=== PATIENT | female | born 1990 | race Caucasian/White ===

== ENCOUNTER 2019-01-23 00:15 | Inpatient (IN) | payer OTHER ==
[~2019-01-23] VITALS: Ht 167.6 cm; Wt 68.0 kg
--- NOTE | 2019-01-23 12:11 | PR ---
[facility] [address] [facility] [place], [place] [address] Signed Progress Notes IP Datetime Report Generated by CPN: 01/23/2019 12:11 PROGRESS NOTES: [id number] Impression: Normal progression of labor; Reassuring heart rate Plan: Continue present management VITAL SIGNS: [id number] Vital Signs: Reviewed; Within Normal Limits EXAM: [id number] Dilatation: 2.5 Effacement: 70 Station: -2 MEMBRANES: [id number] Comments: PT seen and evaluated. Doing well. Comfortable w/ epidural. Ctxs becoming more regular and cervical change noted at last exam by RN. Will consider AROM vs Cook cath at next cervical exam. Reviewed progress and anticipated course of labor w/ pt and her father. All questions answered. Fetus A: [id number] FHR Baseline: 130 Variability: Moderate 6-25bpm Accelerations: None Decelerations: Variable FHR Category: Category II Comments on Fetus A: No evidence of metabolic acidosis Fetus B: [id number] Signing Physician: Damián Falk DO Copies: ~ *Electronically Signed* 01/23/19 1211 DAMIÁN FALK DO PATIENT NAME: GENO BORJA PROGRESS NOTE DATE OF : 90 PHYSICIAN: DAMIÁN FALK DO RPT #: [id number] REPORT IS CONFIDENTIAL AND NOT TO BE RELEASED WITHOUT AUTHORIZATION
--- NOTE | 2019-01-23 14:03 | PR ---
[facility] [address] [place], [place] [address] Signed Progress Notes IP Datetime Report Generated by RASHID: 01/23/2019 14:03 PROGRESS NOTES: [id number] Impression: Normal progression of labor; Reassuring heart rate Procedures: Artificial ROM; Intrauterine Pressure Catheter; Scalp Electrode Plan: Continue present management Informed Consent Obtain: Vaginal Delivery; Section Delivery VITAL SIGNS: [id number] Vital Signs: Reviewed; Within Normal Limits EXAM: [id number] Dilatation: 4.0 Effacement: 90 Station: -2 Uterine Contractions: q 1-4 minutes MEMBRANES: [id number] Membrane Status: Ruptured Amniotic Fluid Color: Clear Comments: Pt seen and examined. Doing well. Variable decelerations noted on FHT. Discussed options for AROM with internal monitors vs continued expectanat management. Pt desires AROM and internals. While assessing position, ROM noted. Moderate amount of clear fluid noted. IUPC and FSE placed without difficulty. Vertex well applied and no prolapse noted. Will monitor variabile closely and consider amnio-infusion Fetus A: [id number] FHR Baseline: 150 Variability: Moderate 6-25bpm Accelerations: None Decelerations: Variable FHR Category: Category II Presentation: Vertex Other Presentation: ROT Comments on Fetus A: No evidence of metabolic acid. Monitoring variable decelerations closely Fetus B: [id number] Signing Physician: Damián Falk DO Copies: *Electronically Signed* 01/23/19 1868 DAMIÁN FALK DO PATIENT NAME: GENO BORJA PROGRESS NOTE DATE OF : 90 PHYSICIAN: DAMIÁN FALK DO RPT #: [id number] REPORT IS CONFIDENTIAL AND NOT TO BE RELEASED WITHOUT AUTHORIZATION [address] [place], [place] [address] Signed ~ *Electronically Signed* 01/23/19 1403 DAMIÁN FALK DO PATIENT NAME: GENO BORJA PROGRESS NOTE DATE OF : 90 PHYSICIAN: DAMIÁN FAKL DO RPT #: [id number] REPORT IS CONFIDENTIAL AND NOT TO BE RELEASED WITHOUT AUTHORIZATION
--- NOTE | 2019-01-23 14:05 | PR ---
[facility] [address] [facility] [place], [place] [address] Signed Progress Notes IP Datetime Report Generated by CPCandelario: 01/23/2019 14:05 PROGRESS NOTES: [id number] Impression: Normal progression of labor; Reassuring heart rate Procedures: Artificial ROM; Intrauterine Pressure Catheter; Scalp Electrode Plan: Continue present management Informed Consent Obtain: Vaginal Delivery; Section Delivery VITAL SIGNS: [id number] Vital Signs: Reviewed; Within Normal Limits EXAM: [id number] Dilatation: 4.0 Effacement: 90 Station: -2 Uterine Contractions: q 1-4 minutes MEMBRANES: [id number] Membrane Status: Ruptured Amniotic Fluid Color: Clear Comments: Prolonged decel. Pt repositioned. Will start amnioinfusion. Consider delivery if not improved. Fetus A: [id number] FHR Baseline: 150 Variability: Moderate 6-25bpm Accelerations: None Decelerations: Variable FHR Category: Category II Presentation: Vertex Other Presentation: ROT Comments on Fetus A: No evidence of metabolic acid. Monitoring variable decelerations closely Fetus B: [id number] Signing Physician: Damián Falk DO Copies: ~ *Electronically Signed* 01/23/19 1401 DAMIÁN FALK DO PATIENT NAME: GENO BORJA PROGRESS NOTE DATE OF : 89 PHYSICIAN: DAMIÁN FALK DO RPT #: [id number] REPORT IS CONFIDENTIAL AND NOT TO BE RELEASED WITHOUT AUTHORIZATION
--- NOTE | 2019-01-23 14:19 | PR ---
[facility] [address] [place], [place] [address] Signed Progress Notes IP Datetime Report Generated by RASHID: 01/23/2019 14:19 PROGRESS NOTES: [id number] Impression: Normal progression of labor; Reassuring heart rate Procedures: Amnio Infusion Plan: Continue present management Informed Consent Obtain: Vaginal Delivery; Section Delivery VITAL SIGNS: [id number] Vital Signs: Reviewed; Within Normal Limits EXAM: [id number] Dilatation: 4.0 Effacement: 90 Station: -2 Uterine Contractions: q 1-4 minutes MEMBRANES: [id number] Membrane Status: Ruptured Amniotic Fluid Color: Clear Comments: FHT improved w/ amnioinfusion. Reviewed strip w/ pt. Discussed if she again develops prolonged deceleration urgent C/S may be indicated. Reviewed moderate variaiblity and accels reassuring. Will continue to monitor closely. Fetus A: [id number] FHR Baseline: 145 Variability: Moderate 6-25bpm Accelerations: 15X15 Decelerations: None FHR Category: Category I Presentation: Vertex Other Presentation: ROT Comments on Fetus A: Variables improved w/ amnioinfusion. Accel and moderate variability Fetus B: [id number] Signing Physician: Damián Falk DO Copies: ~ *Electronically Signed* 01/23/19 1419 DAMIÁN FALK DO PATIENT NAME: GENO BORJA PROGRESS NOTE DATE OF : 90 PHYSICIAN: DAMIÁN FALK DO [facility] #: [id number] REPORT IS CONFIDENTIAL AND NOT TO BE RELEASED WITHOUT AUTHORIZATION
--- NOTE | 2019-01-23 16:11 | PR ---
[facility] [address] [facility] [place], [place] [address] Signed Progress Notes IP Datetime Report Generated by RASHID: 01/23/2019 16:11 PROGRESS NOTES: [id number] Impression: Normal progression of labor; Reassuring heart rate Procedures: Amnio Infusion Plan: Continue present management Informed Consent Obtain: Vaginal Delivery; Section Delivery VITAL SIGNS: [id number] Vital Signs: Reviewed; Within Normal Limits EXAM: [id number] Dilatation: 5.0 Effacement: 90 Station: -2 Uterine Contractions: q 1-4 minutes MEMBRANES: [id number] Membrane Status: Ruptured Amniotic Fluid Color: Clear Comments: Strip reviewed. Improved variability, now moderate. Accels noted. Pt doing well. Continue current plan of care. Will consider pitocin augmentation if cervical change stalls Fetus A: [id number] FHR Baseline: 130 Variability: Moderate 6-25bpm Accelerations: 15X15 Decelerations: None FHR Category: Category I Presentation: Vertex Other Presentation: ROT Comments on Fetus A: No evidence of metabolic acidosis Fetus B: [id number] Signing Physician: Damián Falk DO Copies: ~ *Electronically Signed* 01/23/19 5448 DAMIÁN FALK DO PATIENT NAME: GENO BORJA PROGRESS NOTE DATE OF : 90 PHYSICIAN: DAMÁIN FALK DO RPT #: [id number] REPORT IS CONFIDENTIAL AND NOT TO BE RELEASED WITHOUT AUTHORIZATION
--- NOTE | 2019-01-23 18:36 | PR ---
[facility] [facility] [address] [facility] [place], [place] [address] Signed Progress Notes IP Datetime Report Generated by RASHID: 01/23/2019 18:36 PROGRESS NOTES: [id number] Impression: Normal progression of labor; Reassuring heart rate Procedures: Sterile Vag Exam Plan: Continue present management Informed Consent Obtain: Vaginal Delivery VITAL SIGNS: [id number] Vital Signs: Reviewed; Within Normal Limits EXAM: [id number] Dilatation: 7.0 Effacement: 95 Station: -1 Uterine Contractions: q5-7 min MEMBRANES: [id number] Membrane Status: Ruptured Amniotic Fluid Color: Clear Comments: Pt seen and examined. Doing well. FHT reassuring w/ amnioinfusion. CTXs 5-7 minutes. Will start low dose pit. Anticipate . Reviewed anticipated course of labor w/pt and family. All questions answered. Fetus A: [id number] FHR Baseline: 125 Variability: Moderate 6-25bpm Accelerations: 15X15 Decelerations: Variable FHR Category: Category II Presentation: Vertex Other Presentation: ROT Comments on Fetus A: No evidence of metabolic acidosis Fetus B: [id number] Signing Physician: Damián Falk DO Copies: ~ *Electronically Signed* 01/23/19 1836 DAMIÁN FALK DO PATIENT NAME: GENO BORJA PROGRESS NOTE DATE OF : 90 PHYSICIAN: DAMIÁN FALK #: [id number] REPORT IS CONFIDENTIAL AND NOT TO BE RELEASED WITHOUT AUTHORIZATION
--- NOTE | 2019-01-23 21:00 | PR ---
[facility] [address] [facility] [place], [place] [address] Signed Progress Notes IP Datetime Report Generated by CPCandelario: 01/23/2019 21:00 PROGRESS NOTES: [id number] Impression: Normal progression of labor Procedures: Sterile Vag Exam Plan: Continue present management; Anticipate Vaginal Delivery Informed Consent Obtain: Vaginal Delivery VITAL SIGNS: [id number] Vital Signs: Reviewed; Within Normal Limits EXAM: [id number] Dilatation: 9.0 Effacement: 100 Station: -1 Uterine Contractions: q 2 - 6 min MEMBRANES: [id number] Membrane Status: Ruptured Amniotic Fluid Color: Clear Comments: Pt seen and evaluated. Doing well. Comfortable w/ epidural. Reviewed FHT. Continue to monitor closely and continue position changes. Reviewed anticipated course of delivery w/ pt. All questions answered. Fetus A: [id number] FHR Baseline: 125 Variability: Minimal - Undetectable to <5bpm Accelerations: None Decelerations: Variable FHR Category: Category II Presentation: Vertex Other Presentation: ROT Comments on Fetus A: No evidence of metabolic acidosis Fetus B: [id number] Signing Physician: Damián Falk DO Copies: ~ *Electronically Signed* 01/23/192099 DAMIÁN FALK DO PATIENT NAME: GENO BORJA PROGRESS NOTE DATE OF : 90 PHYSICIAN: DAMIÁN FALK DO RPT #: [id number] REPORT IS CONFIDENTIAL AND NOT TO BE RELEASED WITHOUT AUTHORIZATION
--- NOTE | 2019-01-23 22:01 | PR ---
[facility] [address] [place], [place] [address] Signed Progress Notes IP Datetime Report Generated by CPCandelario: 01/23/2019 22:01 PROGRESS NOTES: [id number] Impression: Normal progression of labor; Reassuring heart rate Procedures: Sterile Vag Exam Plan: Anticipate Vaginal Delivery Informed Consent Obtain: Vaginal Delivery; Section Delivery; Vacuum/Forceps Assist VITAL SIGNS: [id number] Vital Signs: Reviewed; Within Normal Limits EXAM: [id number] Dilatation: 9.0 Effacement: 100 Station: -1 Uterine Contractions: q 1-4 min MEMBRANES: [id number] Membrane Status: Ruptured Amniotic Fluid Color: Clear Comments: Called to pt room for prolonged deceleration. Resolved w/ maternal repositioning. Pt now complete and FHT reassuring w/ mod variability and accelerations. Discussed decelerations in second stage of labor, and reviewed prior converstations in the office where we discussed indications of or operative vaginal delivery. All questions answered. Fetus A: [id number] FHR Baseline: 125 Variability: Moderate 6-25bpm Accelerations: 15X15 Decelerations: Prolonged FHR Category: Category II Presentation: Vertex Other Presentation: ROT Comments on Fetus A: Prolonged deceleration w/ return to baseline. Moderate variability and accels noted Fetus B: [id number] Signing Physician: Damián Falk DO Copies: *Electronically Signed* 01/23/19 9899 DAMIÁN FALK DO PATIENT NAME: GENO BORJA PROGRESS NOTE DATE OF : 90 PHYSICIAN: DAMIÁN FALK DO RPT #: [id number] REPORT IS CONFIDENTIAL AND NOT TO BE RELEASED WITHOUT AUTHORIZATION [address] [address] Signed ~ *Electronically Signed* 01/23/192200 DAMIÁN FALK DO PATIENT NAME: GENO BORJA PROGRESS NOTE DATE OF : 90 PHYSICIAN: DAMIÁN FALK DO RPT #: [id number] REPORT IS CONFIDENTIAL AND NOT TO BE RELEASED WITHOUT AUTHORIZATION
--- NOTE | 2019-01-23 23:08 | PR ---
[facility] [address] [place], [place] [address] Signed Progress Notes IP Datetime Report Generated by RASHID: 01/23/2019 23:08 PROGRESS NOTES: [id number] Impression: Normal progression of labor; Reassuring heart rate Procedures: Sterile Vag Exam Plan: Continue present management; Anticipate Vaginal Delivery Informed Consent Obtain: Vaginal Delivery; Section Delivery; Vacuum/Forceps Assist VITAL SIGNS: [id number] Vital Signs: Reviewed; Within Normal Limits EXAM: [id number] Dilatation: 10.0 Effacement: 100 Station: 1 Uterine Contractions: q 4-6 MEMBRANES: [id number] Membrane Status: Ruptured Amniotic Fluid Color: Clear Comments: Physician has remained at pt bedside. Pushing well w/ contractions. FHT now reassuring and pitocin restarted per protocol. Pt doing well but having some nausea/vomiting. Adequate epidural. Pushing well w/ contractions and descent noted. Reassuring progress made. Pelvis adequate. EFW 7#10oz. Fetus A: [id number] FHR Baseline: indeterminate Variability: Moderate 6-25bpm Accelerations: 15X15 Decelerations: Prolonged FHR Category: Category II Presentation: Vertex Other Presentation: OA Comments on Fetus A: No evidence of metabolic acidosis Fetus B: [id number] Signing Physician: Damián Falk DO Copies: ~ *Electronically Signed* 01/23/19 5144 DAMIÁN FALK DO PATIENT NAME: GENO BORJA PROGRESS NOTE DATE OF : 90 PHYSICIAN: DAMIÁN FALK DO RPT #: [id number] REPORT IS CONFIDENTIAL AND NOT TO BE RELEASED WITHOUT AUTHORIZATION
--- NOTE | 2019-01-25 07:57 | PR ---
[facility] [address] [facility] [place], [place] [address] Signed PP Progress Notes Datetime Report Generated by CPN: 01/25/2019 07:57 SUBJECTIVE: [id number] Pain: Within normal limits Nausea/Vomiting: Denies Flatus: Yes Bowel Movement: No Vital Signs: [id number] Vital Signs: Reviewed EXAM: [id number] Cardiovascular: Normal Respiratory: Normal Abdomen/Uterus: Normal Lochia: Normal Vulva/Perineum: Not Done CVA Tenderness: Normal Extremities: Normal Incision: Not Applicable Progress: Normal Exam Comments: Fundus Firm U-2 nontender IMPRESSION/PLAN/PROCEDURES: [id number] Impression: Normal progression Plan: Discharge Progress Notes: Pt seen and examined. Doing well. Ambulating, voiding, and tolerating full diet. Pain and lochia minimal. Vulvar edema much improved per pt and RN. well. Desires d/c home today. No questions or concerns. Discharge instructions reviewed in detail w/pt and her mother Signing Physician: Damián Falk DO Copies: ~ *Electronically Signed* 01/25/19 0757 DAMIÁN FALK DO PATIENT NAME: GENO BORJA PROGRESS NOTE DATE OF : 90 PHYSICIAN: DAMIÁN FALK DO RPT #: [id number] REPORT IS CONFIDENTIAL AND NOT TO BE RELEASED WITHOUT AUTHORIZATION
== END 2019-01-25 19:20 | disposition home or self-care (01) | DRG 807 ==
LOC: FBC 00:15
PROVIDERS: ADMIT Obstetrics & Gynecology
PROC: 10907ZC Drainage of Amniotic Fluid, Therapeutic from Products of Conception, Via Natural or Artificial Opening (ICD-10-PCS; 2019-01-23)
PROC: 10H07YZ Insertion of Other Device into Products of Conception, Via Natural or Artificial Opening (ICD-10-PCS; 2019-01-23)
PROC: 3E0E7GC Introduction of Other Therapeutic Substance into Products of Conception, Via Natural or Artificial Opening (ICD-10-PCS; 2019-01-23)
PROC: 3E0P7VZ Introduction of Hormone into Female Reproductive, Via Natural or Artificial Opening (ICD-10-PCS; 2019-01-23)
PROC: 00HU33Z Insertion of Infusion Device into Spinal Canal, Percutaneous Approach (ICD-10-PCS; 2019-01-23)
PROC: 3E0R3BZ Introduction of Anesthetic Agent into Spinal Canal, Percutaneous Approach (ICD-10-PCS; 2019-01-23)
PROC: 10E0XZZ Delivery of Products of Conception, External Approach (ICD-10-PCS; principal; 2019-01-24)
PROC: 0KQM0ZZ Repair Perineum Muscle, Open Approach (ICD-10-PCS; 2019-01-24)
PROC: 0UQMXZZ Repair Vulva, External Approach (ICD-10-PCS; 2019-01-24)
DX: O76 Abnormality in fetal heart rate and rhythm complicating labor and delivery (principal); Z37.0 Single live birth; O63.1 Prolonged second stage (of labor); Z3A.39 39 weeks gestation of pregnancy; O99.02 Anemia complicating childbirth; D50.9 Iron deficiency anemia, unspecified; O70.1 Second degree perineal laceration during delivery; O71.82 Other specified trauma to perineum and vulva; Z79.899 Other long term (current) drug therapy
CPT/HCPCS: 01960; 85027; J2590; J2795; J3010; J3105; J7030